=== PATIENT | female | born 1975 | race Two or more races ===

== ENCOUNTER 2018-08-08 09:02 | Emergency (ER) | payer BC ==
[~2018-08-08] VITALS: Ht 162.6 cm; Wt 72.1 kg
[2018-08-08 09:06] VITALS: Ht 162.6 cm; Wt 72.1 kg
[2018-08-08 09:51] VITALS: BP 128/79
== END 2018-08-08 09:51 | disposition home or self-care (01) ==
LOC: ED 09:02
DX: R07.89 Other chest pain (principal); I10 Essential (primary) hypertension